=== PATIENT | female | born 1960 | race Caucasian/White ===

== ENCOUNTER 2016-11-07 16:25 | Emergency (ER) | payer BC ==
[~2016-11-07] VITALS: Ht 157.5 cm; Wt 63.5 kg
[~2016-11-07 16:25] MED LIST: LISI10TA PO
[2016-11-07 16:28] VITALS: BP 166/79; PULSE 89; RESP 15; TEMP 98.4; O2SAT 99
[2016-11-07 17:10] VITALS: BP 163/88; PULSE 71; RESP 19; O2SAT 99
[2016-11-07] MEDS ORDERED: LISI10TA PO (17:12)
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
[2016-11-07] MEDS ORDERED: ALUMINUM/MAGNESIUM/SIMETH 30 ML CUP PO ONE (17:30)
[2016-11-07] MEDS ORDERED: LIDOCAINE VISCOUS 2% SOLN 15 ML UDC PO ONE (17:30)
[2016-11-07] MEDS ORDERED: SODIUM CHLORIDE 0.9% FLUSH 10 ML FLUSH IVF PRN (17:30)
[2016-11-07 17:54] LABS: BASOPHIL % 0.2 % (0.0-2.0); EOSINOPHIL # 0.1 TH/MM3 (0-0.4); HEMATOCRIT 43.7 % (35.0-46.0); LYMPHOCYTE # 1.6 TH/MM3 (1.0-4.8); MEAN CELL VOLUME 82.9 FL (80.0-100.0); MEAN CORPUSCULAR HEMOGLOBIN 29.6 PG (27.0-34.0); MEAN CORPUSCULAR HGB CONC 35.7 % (32.0-36.0); MONO % 8.7 % (0.0-8.0); NEUT % 63.1 % (16.0-70.0); PLATELET COUNT 240 TH/MM3 (150-450); RED BLOOD COUNT 5.27 MIL/MM3 (4.00-5.30); RED CELL DISTRIBUTION WIDTH 13.1 % (11.6-17.2); WHITE BLOOD COUNT 6.3 TH/MM3 (4.0-11.0)
[2016-11-07 17:57] LABS: HEMO FLAGS DIFF FINAL
[2016-11-07 18:03] LABS: APTT (PATIENT) 26.7 SEC (24.3-30.1); PROTHROMBIN TIME - PATIENT 11.5 SEC (9.8-11.6)
[2016-11-07 18:06] VITALS: BP 163/88; PULSE 71; RESP 18; O2SAT 98
--- NOTE | 2016-11-07 18:12 | RADRPT ---
EXAM DATE/TIME: 11/07/2016 17:47 [facility] COMPARISON: No previous studies available for comparison. INDICATIONS : Chest pain x 4 days. MEDICAL HISTORY : None. SURGICAL HISTORY : None. ENCOUNTER: Initial ACUITY: Subacute PAIN SCORE: 3/10 LOCATION: Bilateral chest FINDINGS: PA and lateral views of the chest demonstrate the lungs to be symmetrically aerated without evidence of mass, infiltrate or effusion. The cardiomediastinal contours are unremarkable. Osseous structure s are intact. CONCLUSION: Normal examination for a patient of this age. Cheikh Robles MD on November 07, 2016 at 18:08 Board Certified Radiologist. This report was verified electronically.
[2016-11-07 18:21] LABS: ALT (GPT) 18 U/L (10-53); ANION GAP 7 MEQ/L (5-15); AST (GOT) 6 U/L (15-37); BICARBONATE 27.8 MEQ/L (21.0-32.0); BLOOD UREA NITROGEN 10 MG/DL (7-18); CHLORIDE 104 MEQ/L (98-107); GLOMERULAR FILTRATION RATE 96 ML/MIN (>89); MAGNESIUM 2.2 MG/DL (1.5-2.5); POTASSIUM 3.7 MEQ/L (3.5-5.1); SODIUM (NA) 139 MEQ/L (136-145)
[2016-11-07 18:25] LABS: ALKALINE PHOSPHATASE 64 U/L (45-117); TOTAL BILIRUBIN ADULT 0.8 MG/DL (0.2-1.0)
[2016-11-07 18:53] VITALS: BP 161/72
--- NOTE | 2016-11-08 13:38 | EKG ---
Date Performed: 11/07/2016 Time Performed: 17:57:43 PTAGE: 56 years EKG: Sinus rhythm POSSIBLE LEFT ATRIAL ENLARGEMENT BORDERLINE ECG NO PREVIOUS TRACING DOCTOR: Rufino Flores Interpretating Date/Time 11/08/2016 13:37:44
== END 2016-11-07 18:56 | disposition home or self-care (01) ==
LOC: NEPD 16:25 → MERGE 16:25 → NEPD 18:56
DX: R10.13 Epigastric pain (principal); K44.9 Diaphragmatic hernia without obstruction or gangrene; I10 Essential (primary) hypertension
CPT/HCPCS: 71020; 80053; 83690; 83735; 84484; 85025; 85610; 85730; 93005; 99285